=== PATIENT | female | born 1975 ===

== ENCOUNTER → 2016-08-30 19:15 | Outpatient (CLI) | payer MEDICARE ==
[2016-08-30 20:16] LABS: CREATININE - SERUM 0.8 mg/dL (0.6-1.3); VANCOMYCIN - TROUGH 2.1 ug/mL (10.0-20.0)
== END | disposition home or self-care (01) ==
LOC: D.LAB 19:15
PROVIDERS: Family Medicine
DX: A49.02 Methicillin resistant Staphylococcus aureus infection, unspecified site (principal); L02.212 Cutaneous abscess of back [any part, except buttock and flank]; G93.2 Benign intracranial hypertension